=== PATIENT | male | born 1945 | race Caucasian/White ===

== ENCOUNTER 2021-11-24 09:23 | Emergency (ER) | payer MEDICARE ==
[~2021-11-24] VITALS: Ht 188 cm; Wt 90.7 kg
[~2021-11-24 09:23] MED LIST: ALBU90OI INH; ASPI325 PO; METF500 PO; MOTION RELIEF25 MG PO; Zofran Odt4 MG SL
[2021-11-24] MEDS ORDERED: ATOR10 PO (09:57)
[2021-11-24] MEDS ORDERED: GLIMEPIRIDE1 M2 PO (09:58)
[2021-11-24] MEDS ORDERED: LOSARTAN POTASS25 M2 PO (09:58)
[2021-11-24] MEDS ORDERED: MIRALAX17 GM PO (12:07)
[2021-11-24] MEDS ORDERED: IBUP800 PO (12:07)
[2021-11-24] MEDS ORDERED: Robaxin750 MG PO (12:07)
== END 2021-11-24 12:33 | disposition home or self-care (01) ==
LOC: ER 09:23
DX: K59.00 Constipation, unspecified (principal); S39.012A Strain of muscle, fascia and tendon of lower back, initial encounter; J44.9 Chronic obstructive pulmonary disease, unspecified; Z87.891 Personal history of nicotine dependence; Z79.84 Long term (current) use of oral hypoglycemic drugs; Z79.899 Other long term (current) drug therapy; X50.0XXA Overexertion from strenuous movement or load, initial encounter
CPT/HCPCS: 51798; 72100; 74018; 96372; 99283-25; J1885

== ENCOUNTER 2021-12-19 19:53 | Emergency (ER) | payer MEDICARE ==
[~2021-12-19] VITALS: Ht 188 cm; Wt 99.8 kg
[~2021-12-19 19:53] MED LIST changes: +ATOR10 PO; +GLIMEPIRIDE1 M2 PO; +IBUP800 PO; +LOSARTAN POTASS25 M2 PO; +MIRALAX17 GM PO; +Robaxin750 MG PO
[2021-12-19] MEDS ORDERED: Aspir 8181 MG PO (22:55)
[2021-12-19] MEDS ORDERED: METF500 PO (22:55)
[2021-12-19 23:12] LABS: BASOPHILS ABSOLUTE AUTO 0.04 K/mm3 (0.00-0.23); BASOPHILS PERCENT AUTO 0 % (0-2); EOSINOPHILS ABSOLUTE AUTO 0.08 K/mm3 (0.00-0.68); EOSINOPHILS PERCENT AUTO 1 % (0-6); Hematocrit 38.3 % (37.0-53.0); Hemoglobin 12.1 g/dL (13.5-17.5); IMMATURE GRAN ABSOLUTE AUTO 0.05 K/mm3 (0.00-0.10); IMMATURE GRAN PERCENT AUTO 1 % (0-1); LYMPHOCYTES ABSOLUTE AUTO 0.86 K/mm3 (0.84-5.20); LYMPHOCYTES PERCENT AUTO 9 % (21-46); MONOCYTES ABSOLUTE AUTO 0.84 K/mm3 (0.16-1.47); MONOCYTES PERCENT AUTO 9 % (4-13); Mean Corpuscular HGB 26.3 pg (26.0-34.0); Mean Corpuscular HGB Conc 31.6 g/dL (31.5-36.5); Mean Corpuscular Volume 83 fL (80-100); NEUTROPHILS ABSOLUTE AUTO 7.45 K/mm3 (1.96-9.15); NEUTROPHILS PERCENT AUTO 80 % (41-73); Platelet Count 223 K/mm3 (150-400); RDW Coefficient Variation 13.5 % (11.7-14.2); RDW Standard Deviation 40.9 fL (35.1-46.3); White Blood Cell Count 9.32 K/mm3 (4.00-11.30)
[2021-12-19 23:30] LABS: Albumin, Blood 3.1 g/dL (3.4-5.0); Albumin/Globulin Ratio 0.7 (0.8-1.8); Bilirubin, Total 0.5 mg/dL (0.1-1.0); Bun/Creatinine Ratio 25.2 (12.0-20.0); Creatinine, Blood 1.39 mg/dL (0.60-1.20); Globulin, Blood 4.2 g/dL (2.2-4.0); Potassium, Blood 4.8 mmol/L (3.5-5.5); Total Protein, Blood 7.3 g/dL (6.4-8.2)
[2021-12-20] MEDS ORDERED: MIRALAX17 GM PO (01:05)
[2021-12-20] MEDS ORDERED: Kristalose20 GM PO (01:05)
== END 2021-12-20 01:16 | disposition home or self-care (01) ==
LOC: ER 19:53
PROVIDERS: Emergency Medicine
DX: K59.00 Constipation, unspecified (principal); M89.9 Disorder of bone, unspecified; J44.9 Chronic obstructive pulmonary disease, unspecified; Z87.891 Personal history of nicotine dependence; Z79.899 Other long term (current) drug therapy
CPT/HCPCS: 36415; 74018; 74176; 80053; 85025; 99284-25; A9270; J7030